=== PATIENT | male | born 1950 ===

== ENCOUNTER 2016-09-26 08:23 | Inpatient (IN) | payer MEDICARE ==
[2016-09-26 08:23] VITALS: BMI 31.0
[2016-09-26 09:09] LABS: BASO % 0.7 % (0.0-2.0); EOS # 0.5 K/uL (0.0-0.7); EOS % 6.9 % (0.0-4.0); LYMPH # 1.6 K/uL (1.0-4.3); MEAN CORPUSCULAR HEMOGLOBIN 29.6 pg (27.0-31.0); MEAN CORPUSCULAR HGB CONC 33.5 g/dL (33.0-37.0); MEAN PLATELET VOLUME 8.4 fL (7.2-11.7); MONO # 0.9 K/uL (0.0-0.8); MONO % 12.2 % (0.0-10.0); NEUT # 4.2 K/uL (1.8-7.0); NEUT % 58.2 % (50.0-75.0); RBC 4.12 Mil/uL (4.40-5.90); WHITE BLOOD COUNT 7.2 K/uL (4.8-10.8)
[2016-09-26 09:13] LABS: HEMOGLOBIN 12.2 g/dL (12.0-18.0); MEAN CELL VOLUME 88.5 fL (80.0-94.0)
[2016-09-26 09:18] LABS: INR 1.1; PROTHROMBIN TIME 11.8 SECONDS (9.7-12.2)
[2016-09-26 09:22] LABS: ALBUMIN 3.9 g/dL (3.5-5.0)
[2016-09-26 09:25] LABS: ALB/GLOB RATIO 1.1 (1.0-2.1); CALCIUM 8.9 mg/dl (8.6-10.4)
[2016-09-26] MEDS ORDERED: Dextrose 50% SYRINGE Inj (50 ml) IV STA (09:38)
[2016-09-26] MEDS ORDERED: Calcium Gluconate 4.65 mEq/10 ml Inj IVP STA (09:39)
[2016-09-26] MEDS ORDERED: (Novolin R) Insulin Human Regular 100 units/ml vial IV STA (09:39)
[2016-09-26] MEDS ORDERED: Sod Polystyrene Sulf 15 gm/60 ml Oral Susp PO STA (09:40)
[2016-09-26] MEDS ORDERED: Sodium Bicarbonate (8.4%) 50 Meq Syringe IVP STA (09:40)
[2016-09-26] MEDS ORDERED: Sod Polystyrene Sulf 15 gm/60 ml Oral Susp ONE (09:47)
[2016-09-26] MEDS ORDERED: Sodium Bicarbonate (8.4%) 50 Meq Syringe ONE (09:47)
[2016-09-26] MEDS ORDERED: Calcium Gluconate 4.65 mEq/10 ml Inj ONE (09:47)
[2016-09-26] MEDS ORDERED: Dextrose 50% SYRINGE Inj (50 ml) ONE (09:47)
--- NOTE | 2016-09-26 09:47 | C.PDOC ---
History Of Present Illness 66 y/o male sent to the ED by PMD for elevated potassium level. Patient states blood work was done 2 days ago, which showed elevated potassium level, was instructed to report to ED. Pt complains of generalized weakness, and feels "sluggish". Denies having similar symptoms in the past. Otherwise, denies any muscle cramps, chest pain, palpitations, shortness of breath, nausea, vomiting, headache, dizziness, or fever. Time Seen by Provider: 09/26/16 08:36 Chief Complaint (Nursing): Abnormal Labs History Per: Patient History/Exam Limitations: no limitations Onset/Duration Of Symptoms: Gradual Current Symptoms Are (Timing): Still Present Severity: None Pain Scale Rating Of: 0 Reports Recently: Treated By A Physician Recent travel outside of the [place]: No Additional History Per: Patient Past Medical History Reviewed: Historical Data, Nursing Documentation, Vital Signs Vital Signs: Last Vital Signs Temp 97.3 F L 09/26/16 13:52 Pulse 64 09/26/16 13:52 Resp 20 09/26/16 13:52 BP 104/65 09/26/16 13:52 Pulse Ox 99 09/26/16 13:52 - Medical History PMH: CHF, Diabetes, HTN, Chronic Kidney Disease, Sleep Apnea (NO CPAP USED) - [employer] Procedures ASSISTANCE WITH RESPIRATORY VENTILATION, <24 HRS, CPAP (10/11/15) FLUOROSCOPY OF MULT COR ART USING L OSM CONTRAST (10/11/15) FLUOROSCOPY OF RIGHT AND LEFT HEART USING L OSM CONTRAST (10/11/15) MEASURE CARDIAC SAMPL & PRESSURE, BILATERAL, PERC (10/11/15) Family History: States: Unknown Family Hx - Social History Hx Tobacco Use: No Hx Alcohol Use: Yes (OCCASIONAL ALCOHOL USE. DRANK A YR AGO) Hx Substance Use: No - Immunization History Hx Tetanus Toxoid Vaccination: No Hx Influenza Vaccination: No Hx Pneumococcal Vaccination: No Review Of Systems Except As Marked, All Systems Reviewed And Found Negative. Constitutional: Positive for: Weakness. Negative for: Fever, Chills Cardiovascular: Negative for: Chest Pain, Palpitations, Light Headedness Respiratory: Negative for: Cough, Shortness of Breath Gastrointestinal: Negative for: Nausea, Vomiting Musculoskeletal: Negative for: Neck Pain Skin: Negative for: Rash, Bruising Neurological: Negative for: Weakness, Numbness, Headache, Dizziness Physical Exam - Physical Exam Appears: Non-toxic, No Acute Distress Skin: Normal Color, Warm, Dry Head: Atraumatic, Normacephalic Eye(s): bilateral: Normal Inspection, EOMI Nose: Normal Oral Mucosa: Moist Neck: Normal ROM, Supple Lymphatic: Normal Exam Chest: Symmetrical Cardiovascular: Rhythm Regular, No Murmur Respiratory: Normal Breath Sounds, No Rales, No Rhonchi, No Wheezing Gastrointestinal/Abdominal: Soft, No Tenderness Extremity: Normal ROM Neurological/Psych: Oriented x3, Normal Speech ED Course And Treatment - Laboratory Results Result Diagrams: 09/26/16 09:02 09/26/16 11:31 ECG: Interpreted By Me, Viewed By Me ECG Rhythm: Sinus Bradycardia ECG Interpretation: Normal Interpretation Of ECG: no significant peaked T noted Rate From EC (bpm) O2 Sat by Pulse Oximetry: 97 (RA) Pulse Ox Interpretation: Normal Progress Note: Blood work, urinalysis, EKG ordered and reviewed. Patient was given Calcium gluconate, Dextrose, Insulin, Sodium Bicarbonate, Sodium Polystyrene sulfonate, and Albuterol treatment. Case discussed with Dr. Dunaway who agrees with plan, treatment, and admission. Spoke with Dr. Emili Marrero who agrees upon admission under her service. Disposition - Disposition Disposition: HOSPITALIZED Disposition Time: 13:30 Condition: STABLE - Clinical Impression Clinical Impression: Hyperkalemia, Renal insufficiency - PA / KETTLE OPERATOR / Resident Statement MD/DO has reviewed & agrees with the documentation as recorded. - Scribe Statement The provider has reviewed the documentation as recorded by the Scribe Samantha Schultz All medical record entries made by the Scribe were at my direction and personally dictated by me. I have reviewed the chart and agree that the record accurately reflects my personal performance of the history, physical exam, medical decision making, and the department course for this patient. I have also personally directed, reviewed, and agree with the discharge instructions and disposition.
[2016-09-26 09:56] LABS: URINE BACTERIA RARE (<OCC); URINE BILIRUBIN NEGATIVE (NEGATIVE); URINE BLOOD NEGATIVE (NEGATIVE); URINE CLARITY Clear (Clear); URINE COLOR Straw (YELLOW); URINE GLUCOSE (UA) NORMAL (Normal); URINE LEUKOCYTE ESTERASE NEG Leu/uL (Negative); URINE NITRATE NEGATIVE (NEGATIVE); URINE PROTEIN NEGATIVE (NEGATIVE); URINE UROBILINOGEN NORMAL mg/dL (0.2-1.0)
[2016-09-26] MEDS ORDERED: (Novolin R) Insulin Human Regular 100 units/ml vial ONE (09:56)
[2016-09-26] MEDS ORDERED: Albuterol 0.083% Inhal Sol (2.5 mg/3 mL) UD IH STA (10:50)
[2016-09-26] MEDS ORDERED: Albuterol-Ipratrop 3 mg / 0.5 (3 ml) UD ONE (11:06)
[2016-09-26 11:55] LABS: ALBUMIN 4.1 g/dL (3.5-5.0)
[2016-09-26 11:59] LABS: ALB/GLOB RATIO 1.1 (1.0-2.1); CALCIUM 9.6 mg/dl (8.6-10.4)
--- NOTE | 2016-09-26 14:34 | CP.PCM.CON ---
History of Present Illness - History of Present Illness History of Present Illness: [id number] man was referred by the PMDs office for elevated potassium level patient has been potassium of 7.4 eventually kidney consult was called the patient complaints of generalized weakness and feeling slow but no fever no chest pain no headache no muscle cramps no leg cramps no shortness of breath no nausea no vomiting was brought in status post potassium of 7.4 given Kayexalate and calcium added albuterol as well as sodium and glucose insulin glucose repeat the potassium went down to 6.1 discussed with the PMD no chest pain or shortness of breath patient otherwise feels better EKG revealed some minor changes Past Patient History - Infectious Disease Hx of Infectious Diseases: None - Tetanus Immunizations Tetanus Immunization: Unknown - Past Medical History & Family History Past Medical History?: Yes - Past Social History Smoking Status: Never Smoked - CARDIAC Hx Congestive Heart Failure: Yes Hx Hypertension: Yes - PULMONARY Hx Pulmonary Edema: Yes Hx Sleep Apnea: Yes (NO CPAP USED) - HEENT Hx Cataracts: Yes - RENAL Hx Chronic Kidney Disease: Yes - ENDOCRINE/METABOLIC Hx Endocrine Disorders: Yes Hx Diabetes Mellitus Type 2: Yes - HEMATOLOGICAL/ONCOLOGICAL Hx Blood Disorders: No - MUSCULOSKELETAL/RHEUMATOLOGICAL Hx Falls: No Hx Gout: Yes - GASTROINTESTINAL Hx Gastrointestinal Disorders: No - GENITOURINARY/GYNECOLOGICAL Hx Prostate Problems: Yes - PSYCHIATRIC Hx Substance Use: No - SURGICAL HISTORY Hx Surgeries: Yes (CYST REMOVED UNDERARM LEFT .) Other/Comment: hernia repair - ANESTHESIA Hx Anesthesia: Yes Hx Anesthesia Reactions: No Hx Malignant Hyperthermia: No Has any member of the family had a problem w/ anesthesia?: No Meds Allergies/Adverse Reactions: Allergies Allergy/AdvReac Type Severity Reaction Status Date / Time No Known Allergies Allergy Verified 09/26/16 08:30 Physical Exam - Constitutional Appears: Well - Head Exam Head Exam: ATRAUMATIC, NORMAL INSPECTION, NORMOCEPHALIC - Eye Exam Eye Exam: EOMI, Normal appearance, PERRL Pupil Exam: NORMAL ACCOMODATION, PERRL - ENT Exam ENT Exam: Mucous Membranes Moist, Normal Exam - Neck Exam Neck exam: Positive for: Normal Inspection - Respiratory Exam Respiratory Exam: Decreased Breath Sounds - Cardiovascular Exam Cardiovascular Exam: REGULAR RHYTHM, +S1, +S2 - GI/Abdominal Exam GI & Abdominal Exam: Diminished Bowel Sounds, Soft - Rectal Exam Rectal Exam: Deferred Results - Vital Signs Recent Vital Signs: Last Vital Signs Temp 97.3 F L 09/26/16 13:52 Pulse 64 09/26/16 13:52 Resp 20 09/26/16 13:52 BP 104/65 09/26/16 13:52 Pulse Ox 99 09/26/16 13:52 - Labs Result Diagrams: 09/26/16 09:02 09/26/16 11:31 Labs: Laboratory Results - last 24 hr 09/26/16 11:31 Sodium 144 Potassium 6.1 H Chloride 111 H Carbon Dioxide 16 L Anion Gap 23 H BUN 63 H Creatinine 2.7 H Est GFR ( Amer) 29 Est GFR (Non-Af Amer) 24 Random Glucose 77 Calcium 9.6 Total Bilirubin 0.7 AST 22 ALT 26 Alkaline Phosphatase 59 Total Protein 7.8 Albumin 4.1 Globulin 3.8 Albumin/Globulin Ratio 1.1 Assessment & Plan - Assessment and Plan (Free Text) Plan: Creatinine level Pastora level Status post albuterol Status post anemia was status post Kayexalate Status post glucose insulin glucose Status post albuterol Status post calcium EKG Check CBC CMP daily C3-C4 Hepatitis B surface antigen hepatitis B surface antibody Hepatitis C antibody Renal sonogram 24 hour urine for total protein Urine electrolytes Case seen and discussed with the PMD
--- NOTE | 2016-09-26 16:47 | US ---
PROCEDURE: Ultrasound of the Kidneys HISTORY: Chronic renal failure. COMPARISON: All along, 1 oral. Remain ribs:. TECHNIQUE: Sonogram of the kidneys. FINDINGS: RIGHT KIDNEY: Measures: 4.8 x 5.9 x 10.0 cm. Normal in size, contour and echogenicity. No stone, solid mass lesion or hydronephrosis visualized. Incidental finding(s): Multiple simple cysts (4) LEFT KIDNEY: Measures: 5 x 5.6 x 12.4 cm. Normal in size, contour and echogenicity. No stone, solid mass lesion or hydronephrosis visualized. Incidental finding(s): Simple cyst upper pole 2.2 x 2.8 cm. Midpole cyst 3.4 x 2.4 cm. Calcific rim within the cyst. OTHER FINDINGS: None. IMPRESSION: No significant or acute findings to account for/ related to the clinical presentation. Additional benign and/or incidental findings described above.
[2016-09-26] MEDS ORDERED: Albuterol 0.083% Inhal Sol (2.5 mg/3 mL) UD INH STA ×2 (23:14→23:15)
--- NOTE | 2016-09-26 23:21 | CP.PCM.HP ---
History of Present Illness - History of Present Illness History of Present Illness: History Of Present Illness 66 y/o male sent to the ED by PMD ( [facility]) for elevated potassium level. Patient states blood work was done 2 days ago, which showed elevated potassium level, was instructed to report to ED. Pt complains of generalized weakness, and feels "sluggish". Denies having similar symptoms in the past. Otherwise, denies any muscle cramps, chest pain, palpitations, shortness of breath, nausea , vomiting, headache, dizziness, or fever. Present on Admission - Present on Admission Any Indicators Present on Admission: No Review of Systems - Constitutional Constitutional: Fatigue, Lethargy - EENT Eyes: As Per HPI Ears: As Per HPI Nose/Mouth/Throat: As Per HPI - Cardiovascular Cardiovascular: As Per HPI - Respiratory Respiratory: As Per HPI - Gastrointestinal Gastrointestinal: As Per HPI - Genitourinary Genitourinary: As Per HPI - Integumentary Integumentary: As Per HPI - Neurological Neurological: As Per HPI - Psychiatric Psychiatric: As Per HPI - Endocrine Endocrine: As Per HPI - Hematologic/Lymphatic Hematologic: As Per HPI Past Patient History - Infectious Disease Hx of Infectious Diseases: None - Tetanus Immunizations Tetanus Immunization: Unknown - Past Medical History & Family History Past Medical History?: Yes - Past Social History Smoking Status: Never Smoked - CARDIAC Hx Congestive Heart Failure: Yes Hx Hypertension: Yes - PULMONARY Hx Pulmonary Edema: Yes Hx Sleep Apnea: Yes (NO CPAP USED) - HEENT Hx Cataracts: Yes - RENAL Hx Chronic Kidney Disease: Yes - ENDOCRINE/METABOLIC Hx Endocrine Disorders: Yes Hx Diabetes Mellitus Type 2: Yes - HEMATOLOGICAL/ONCOLOGICAL Hx Blood Disorders: No - MUSCULOSKELETAL/RHEUMATOLOGICAL Hx Falls: No Hx Gout: Yes - GASTROINTESTINAL Hx Gastrointestinal Disorders: No - GENITOURINARY/GYNECOLOGICAL Hx Prostate Problems: Yes - PSYCHIATRIC Hx Substance Use: No - SURGICAL HISTORY Hx Surgeries: Yes (CYST REMOVED UNDERARM LEFT .) Other/Comment: hernia repair - ANESTHESIA Hx Anesthesia: Yes Hx Anesthesia Reactions: No Hx Malignant Hyperthermia: No Has any member of the family had a problem w/ anesthesia?: No Meds Allergies/Adverse Reactions: Allergies Allergy/AdvReac Type Severity Reaction Status Date / Time No Known Allergies Allergy Verified 09/26/16 08:30 Physical Exam - Constitutional Appears: Well - Head Exam Head Exam: ATRAUMATIC, NORMAL INSPECTION, NORMOCEPHALIC - Eye Exam Eye Exam: EOMI, Normal appearance, PERRL Pupil Exam: NORMAL ACCOMODATION, PERRL - ENT Exam ENT Exam: Mucous Membranes Moist, Normal Exam - Neck Exam Neck exam: Positive for: Normal Inspection - Respiratory Exam Respiratory Exam: Clear to Auscultation Bilateral, NORMAL BREATHING PATTERN - Cardiovascular Exam Cardiovascular Exam: REGULAR RHYTHM - GI/Abdominal Exam GI & Abdominal Exam: Normal Bowel Sounds, Soft. absent: Tenderness - Rectal Exam Rectal Exam: NORMAL INSPECTION - Exam Exam: Circumcision, NORMAL INSPECTION External exam: NORMAL EXTERNAL EXAM Speculum exam: NORMAL SPECULUM EXAM Bimanual exam: NORMAL BIMANUAL EXAM - Extremities Exam Extremities exam: Positive for: normal inspection - Back Exam Back exam: NORMAL INSPECTION - Neurological Exam Neurological exam: Alert, CN II-XII Intact, Normal Gait, Oriented x3, Reflexes Normal - Psychiatric Exam Psychiatric exam: Normal Affect, Normal Mood - Skin Skin Exam: Dry, Intact, Normal Color, Warm Results - Vital Signs Recent Vital Signs: Last Vital Signs Temp 97.5 F L 09/26/16 15:48 Pulse 60 09/26/16 15:48 Resp 20 09/26/16 15:48 BP 102/70 09/26/16 16:00 Pulse Ox 100 09/26/16 15:48 - Labs Result Diagrams: 09/26/16 09:02 09/26/16 11:31 Labs: Laboratory Results - last 24 hr 09/26/16 09/26/16 09/26/16 11:31 21:55 21:55 Sodium 144 Potassium 6.1 H Chloride 111 H Carbon Dioxide 16 L Anion Gap 23 H BUN 63 H Creatinine 2.7 H Est GFR ( Amer) 29 Est GFR (Non-Af Amer) 24 Random Glucose 77 Calcium 9.6 Total Bilirubin 0.7 AST 22 ALT 26 Alkaline Phosphatase 59 Total Protein 7.8 Albumin 4.1 Globulin 3.8 Albumin/Globulin Ratio 1.1 Ur Random Sodium 74 Ur Random Potassium 31.8 Assessment & Plan (1) Hyperkalemia Status: Acute (2) Renal insufficiency Status: Acute (3) Abdominal pain Status: Acute (4) Diabetes Status: Acute (5) Heart failure Status: Acute Priority: High (6) Hyperglycemia Status: Acute (7) Hypertension Status: Acute (8) ZEFERINO (obstructive sleep apnea) Status: Acute (9) Pneumonia Status: Acute (10) Prophylactic measure Status: Acute (11) Pulmonary edema Status: Acute (12) Respiratory distress, acute Status: Acute Priority: High - Assessment and Plan (Free Text) Assessment: 66-year-old man was referred by the PMDs office for elevated potassium level patient has been potassium of 7.4 eventually kidney consult was called BY DR monserrat larose ,the patient complaints of generalized weakness and feeling slow but no fever no chest pain no headache no muscle cramps no leg cramps no shortness of breath no nausea no vomiting was brought in status post potassium of 7.4 given Kayexalate and calcium added albuterol as well as sodium and glucose insulin glucose repeat the potassium went down to 6.[address] larose no chest pain or shortness of breath patient otherwise feels better EKG revealed some minor changes Plan: Plan: Creatinine level Status post albuterol,status post Kayexalate Status post glucose insulin Status post calcium EKG Check CBC CMP daily C3-C4 Hepatitis B surface antigen hepatitis B surface antibody Hepatitis C antibody Renal sonogram 24 hour urine for total protein Urine electrolytes Case seen and discussed with the dr Monserrat larose
[2016-09-26] MEDS ORDERED: Dextrose 50% SYRINGE Inj (50 ml) IV ONE (23:30)
[2016-09-26] MEDS ORDERED: (Novolin R) Insulin Human Regular 100 units/ml vial IV ONE (23:30)
[2016-09-27] MEDS: Albuterol 0.083% Inhal Sol (2.5 mg/3 mL) UD INH STA ×2 (00:26→00:27)
[2016-09-27 03:19] LABS: CALCIUM 8.7 mg/dl (8.6-10.4)
[2016-09-27 08:02] LABS: HEMOGLOBIN 11.8 g/dL (12.0-18.0); MEAN CELL VOLUME 87.8 fL (80.0-94.0); MEAN CORPUSCULAR HEMOGLOBIN 29.5 pg (27.0-31.0); MEAN CORPUSCULAR HGB CONC 33.6 g/dL (33.0-37.0); MEAN PLATELET VOLUME 8.6 fL (7.2-11.7); RED CELL DISTRIBUTION WIDTH 13.7 % (11.5-14.5); WHITE BLOOD COUNT 6.9 K/uL (4.8-10.8)
[2016-09-27 08:40] LABS: ALBUMIN 3.8 g/dL (3.5-5.0)
[2016-09-27 08:43] LABS: ALB/GLOB RATIO 1.1 (1.0-2.1)
[2016-09-27 08:44] LABS: CALCIUM 8.9 mg/dl (8.6-10.4)
[2016-09-27 08:49] LABS: COMPLEMENT C4 26.7 mg/dL (14.0-44.0)
[2016-09-27 08:56] LABS: HEPATITIS C ANTIBODY NEGATIVE (NEGATIVE)
[2016-09-27 09:25] LABS: HEPATITIS B SURFACE AG NEGATIVE (NEGATIVE)
[2016-09-27] MEDS ORDERED: GlipiZIDE 2.5 mg Tab PO SCH (10:00)
--- NOTE | 2016-09-27 12:53 | CARD ---
APPROVED REPORT EKG Measurement Heart [id number] <Conclusion> Sinus bradycardia Otherwise normal ECG
[2016-09-27 16:05] VITALS: RESP 20
--- NOTE | 2016-09-27 16:42 | CP.PCM.HP ---
Past Patient History - Infectious Disease Hx of Infectious Diseases: None - Tetanus Immunizations Tetanus Immunization: Unknown - Past Medical History & Family History Past Medical History?: Yes - Past Social History Smoking Status: Never Smoked - CARDIAC Hx Cardiac Disorders: Yes (CHF) Hx Hypertension: Yes - PULMONARY Hx Pulmonary Edema: Yes Hx Sleep Apnea: Yes (NO CPAP USED) - HEENT Hx Cataracts: Yes - RENAL Hx Chronic Kidney Disease: Yes - ENDOCRINE/METABOLIC Hx Diabetes Mellitus Type 2: Yes - HEMATOLOGICAL/ONCOLOGICAL Hx Blood Disorders: No - MUSCULOSKELETAL/RHEUMATOLOGICAL Hx Falls: No Hx Gout: Yes - GASTROINTESTINAL Hx Gastrointestinal Disorders: No - GENITOURINARY/GYNECOLOGICAL Hx Prostate Problems: Yes - PSYCHIATRIC Hx Substance Use: No - SURGICAL HISTORY Hx Surgeries: Yes (CYST REMOVED UNDERARM LEFT .) Other/Comment: hernia repair - ANESTHESIA Hx Anesthesia: Yes Hx Anesthesia Reactions: No Hx Malignant Hyperthermia: No Has any member of the family had a problem w/ anesthesia?: No Meds Allergies/Adverse Reactions: Allergies Allergy/AdvReac Type Severity Reaction Status Date / Time No Known Allergies Allergy Verified 09/26/16 08:30 Physical Exam - Constitutional Appears: Well - Head Exam Head Exam: ATRAUMATIC, NORMAL INSPECTION, NORMOCEPHALIC - Eye Exam Eye Exam: EOMI, Normal appearance, PERRL Pupil Exam: NORMAL ACCOMODATION, PERRL - ENT Exam ENT Exam: Mucous Membranes Moist, Normal Exam - Neck Exam Neck exam: Positive for: Normal Inspection - Respiratory Exam Respiratory Exam: Decreased Breath Sounds - Cardiovascular Exam Cardiovascular Exam: REGULAR RHYTHM, +S1, +S2 - GI/Abdominal Exam GI & Abdominal Exam: Diminished Bowel Sounds, Soft - Rectal Exam Rectal Exam: Deferred Results - Vital Signs Recent Vital Signs: Last Vital Signs Temp 97.8 F 09/27/16 16:02 Pulse 77 09/27/16 16:02 Resp 20 09/27/16 16:02 BP 94/64 L 09/27/16 16:02 Pulse Ox 98 09/27/16 16:02 - Labs Result Diagrams: 09/27/16 07:48 09/27/16 07:48 Labs: Laboratory Results - last 24 hr 09/26/16 09/26/16 09/27/16 21:55 21:55 03:01 WBC RBC Hgb Hct MCV MCH MCHC RDW Plt Count MPV Sodium 141 Potassium 4.6 Chloride 109 H Carbon Dioxide 16 L Anion Gap 21 H BUN 61 H Creatinine 2.8 H Est GFR ( Amer) 27 Est GFR (Non-Af Amer) 23 Random Glucose 130 H Calcium 8.7 Total Bilirubin AST ALT Alkaline Phosphatase Total Protein Albumin Globulin Albumin/Globulin Ratio Ur Random Sodium 74 Ur Random Potassium 31.8 Complement C3 Complement C4 Hep Bs Antigen Hep Bs Antibody Hepatitis C Antibody 09/27/16 09/27/16 09/27/16 07:48 07:48 07:48 WBC 6.9 RBC 4.00 L Hgb 11.8 L Hct 35.2 MCV 87.8 MCH 29.5 MCHC 33.6 RDW 13.7 Plt Count 179 MPV 8.6 Sodium 143 Potassium 5.5 H Chloride 108 H Carbon Dioxide 18 L Anion Gap 22 H BUN 58 H Creatinine 2.7 H Est GFR ( Amer) 29 Est GFR (Non-Af Amer) 24 Random Glucose 100 Calcium 8.9 Total Bilirubin 0.6 AST 16 L D ALT 23 Alkaline Phosphatase 51 Total Protein 7.3 Albumin 3.8 Globulin 3.5 Albumin/Globulin Ratio 1.1 Ur Random Sodium Ur Random Potassium Complement C3 Complement C4 Hep Bs Antigen Negative Hep Bs Antibody Hepatitis C Antibody Negative 09/27/16 09/27/16 07:48 07:48 WBC RBC Hgb Hct MCV MCH MCHC RDW Plt Count MPV Sodium Potassium Chloride Carbon Dioxide Anion Gap BUN Creatinine Est GFR ( Amer) Est GFR (Non-Af Amer) Random Glucose Calcium Total Bilirubin AST ALT Alkaline Phosphatase Total Protein Albumin Globulin Albumin/Globulin Ratio Ur Random Sodium Ur Random Potassium Complement C3 102.0 Complement C4 26.7 Hep Bs Antigen Hep Bs Antibody Negative Hepatitis C Antibody
[2016-09-27] MEDS ORDERED: Sod Polystyrene Sulf 15 gm/60 ml Oral Susp PO ONE (18:56)
[2016-09-28 01:51] VITALS: O2SAT 97
--- NOTE | 2016-09-28 03:22 | PN ---
SUBJECTIVE: The patient is a 66 years old male. The patient is seen and examined on the bedside, looking comfortable. No nausea, vomiting or diarrhea. No hematuria or hematochezia. No swelling of the leg. No chest pain. No palpitations. No headache. No dizziness. PHYSICAL EXAMINATION: VITAL SIGNS: Temperature 97.8, pulse 77, blood pressure 94/64, and respiratory rate is 20. HEENT: Head is normocephalic and atraumatic. Eyes; PERRLA. Extraocular muscles intact. Conjunctivae clear. Nose patent. NECK: Supple. No carotid bruits, JVD, or thyromegaly. CHEST: Bilateral symmetrical. HEART: S1 and S2 positive. LUNGS: Clear to auscultation. ABDOMEN: Soft. Bowel sounds present. No organomegaly. EXTREMITIES: No edema. No cyanosis. NEUROLOGIC: The patient is awake and alert. Moving all four extremities. No focal deficits. MEDICATIONS: Amaryl, Heparin and Lasix. LABORATORY DATA: White blood cell 6.9, hemoglobin 11.8, hematocrit 35.2 and platelets 179. Sodium 142, potassium 5.5 on admission it was 7.4, BUN 58, on admission it was 61 and creatinine 2.7. ASSESSMENT AND PLAN: Mr. Glynn Riggins is a 66 years old male with anemia, hyperkalemia improving, hyperchloremia, renal insufficiency improving, videotape editor is on the case, hepatitis are negative, seen by Dr. Brinda Schultz, history of fatigue and tiredness, palpitation, uncontrolled diabetes mellitus. The patient had a followup with [facility]. The patient had stress test done in 2014 , had h/o congestive heart failure, sleep apnea, h/o cardiomyopathy, had h/o LifeVest but according to the patient, he went to see [place] public works supervisor. The patient was using Coumadin, but according to the patient [place] doctor stopped his blood thinner, we will work on that. GI/DVT prophylaxis. We will continue monitoring the patient's potassium. We will follow up. Emili Marrero MD DAVID
[2016-09-28 07:26] LABS: HEMOGLOBIN 11.8 g/dL (12.0-18.0); MEAN CELL VOLUME 87.3 fL (80.0-94.0); MEAN CORPUSCULAR HEMOGLOBIN 29.2 pg (27.0-31.0); MEAN CORPUSCULAR HGB CONC 33.4 g/dL (33.0-37.0); MEAN PLATELET VOLUME 8.5 fL (7.2-11.7); RBC 4.04 Mil/uL (4.40-5.90); RED CELL DISTRIBUTION WIDTH 13.9 % (11.5-14.5); WHITE BLOOD COUNT 6.2 K/uL (4.8-10.8)
[2016-09-28 07:36] LABS: CALCIUM 8.6 mg/dl (8.6-10.4)
[2016-09-28 07:38] LABS: IRON 80 ug/dL (49-181)
[2016-09-28 07:53] LABS: % IRON SATURATION 30 (20-55); TOTAL IRON BINDING CAPACITY 265 ug/dL (250-450)
[2016-09-28 08:36] VITALS: BP 98/66; PULSE 65; TEMP 97.6
[2016-09-28 08:48] LABS: FOLATE 6.6 ng/mL
--- NOTE | 2016-09-28 11:39 | CP.PCM.CON ---
Past Patient History - Infectious Disease Hx of Infectious Diseases: None - Tetanus Immunizations Tetanus Immunization: Unknown - Past Medical History & Family History Past Medical History?: Yes - Past Social History Smoking Status: Never Smoked - CARDIAC Hx Cardiac Disorders: Yes (CHF) Hx Hypertension: Yes - PULMONARY Hx Pulmonary Edema: Yes Hx Sleep Apnea: Yes (NO CPAP USED) - HEENT Hx Cataracts: Yes - RENAL Hx Chronic Kidney Disease: Yes - ENDOCRINE/METABOLIC Hx Diabetes Mellitus Type 2: Yes - HEMATOLOGICAL/ONCOLOGICAL Hx Blood Disorders: No - MUSCULOSKELETAL/RHEUMATOLOGICAL Hx Falls: No Hx Gout: Yes - GASTROINTESTINAL Hx Gastrointestinal Disorders: No - GENITOURINARY/GYNECOLOGICAL Hx Prostate Problems: Yes - PSYCHIATRIC Hx Substance Use: No - SURGICAL HISTORY Hx Surgeries: Yes (CYST REMOVED UNDERARM LEFT .) Other/Comment: hernia repair - ANESTHESIA Hx Anesthesia: Yes Hx Anesthesia Reactions: No Hx Malignant Hyperthermia: No Has any member of the family had a problem w/ anesthesia?: No Meds Allergies/Adverse Reactions: Allergies Allergy/AdvReac Type Severity Reaction Status Date / Time No Known Allergies Allergy Verified 09/26/16 08:30 - Medications Medications: Current Medications Aspirin (Ecotrin) 81 mg PO DAILY [facility] Last Admin: 09/28/16 09:50 Dose: 81 mg Furosemide (Lasix) 40 mg PO DAILY [facility] Last Admin: 09/28/16 09:50 Dose: 40 mg Glimepiride (Amaryl) 4 mg PO DAILY [facility] Last Admin: 09/28/16 09:49 Dose: 4 mg Heparin Sodium (Porcine) (Heparin) 5,000 units SC Q12 [facility] Last Admin: 09/28/16 09:51 Dose: 5,000 units Results - Vital Signs Recent Vital Signs: Last Vital Signs Temp 97.6 F 09/28/16 07:00 Pulse 65 09/28/16 10:00 Resp 20 09/28/16 07:00 BP 98/66 L 09/28/16 09:50 Pulse Ox 97 09/28/16 07:00 - Labs Result Diagrams: 09/28/16 07:16 09/28/16 07:16 Labs: Laboratory Results - last 24 hr 09/26/16 09/27/16 09/28/16 21:55 19:28 07:16 WBC 6.2 RBC 4.04 L Hgb 11.8 L Hct 35.2 MCV 87.3 MCH 29.2 MCHC 33.4 RDW 13.9 Plt Count 173 MPV 8.5 Sodium Potassium Chloride Carbon Dioxide Anion Gap BUN Creatinine Est GFR ( Amer) Est GFR (Non-Af Amer) Random Glucose Calcium Iron TIBC % Saturation NT-Pro-B Natriuret Pep Triglycerides Cholesterol LDL Cholesterol Direct HDL Cholesterol Vitamin B12 Folate TSH 3rd Generation Urine Collection Time 24 Urine Total Volume 900 Urine Chloride 94 Ur Protein 24 Hr Calc 108.0 09/28/16 09/28/16 07:16 07:16 WBC RBC Hgb Hct MCV MCH MCHC RDW Plt Count MPV Sodium 141 Potassium 5.0 Chloride 106 Carbon Dioxide 17 L Anion Gap 23 H BUN 59 H Creatinine 2.5 H Est GFR ( Amer) 31 Est GFR (Non-Af Amer) 26 Random Glucose 122 H Calcium 8.6 Iron 80 TIBC 265 % Saturation 30 NT-Pro-B Natriuret Pep 116 Triglycerides 228 H D Cholesterol 129 LDL Cholesterol Direct 58 HDL Cholesterol 27 L Vitamin B12 280 Folate 6.6 TSH 3rd Generation 1.24 Urine Collection Time Urine Total Volume Urine Chloride Ur Protein 24 Hr Calc
--- NOTE | 2016-09-28 16:15 | CP.PCM.DIS ---
Provider - Provider Date of Admission: 09/26/16 10:41 Attending physician: Emili Marrero MD Time Spent in preparation of Discharge (in minutes): 50 Diagnosis - Discharge Diagnosis (1) Hyperkalemia Status: Acute (2) Renal insufficiency Status: Acute (3) Abdominal pain Status: Acute (4) Diabetes Status: Acute (5) Heart failure Status: Acute Priority: High (6) Hyperglycemia Status: Acute (7) Hypertension Status: Acute (8) ZEFERINO (obstructive sleep apnea) Status: Acute (9) Pneumonia Status: Acute (10) Prophylactic measure Status: Acute (11) Pulmonary edema Status: Acute (12) Respiratory distress, acute Status: Acute Priority: High Hospital Course - Lab Results Lab Results: Most Recent Lab Values WBC 6.2 K/uL (4.8-10.8) 09/28/16 07:16 RBC 4.04 Mil/uL (4.40-5.90) L 09/28/16 07:16 Hgb 11.8 g/dL (12.0-18.0) L 09/28/16 07:16 Hct 35.2 % (35.0-51.0) 09/28/16 07:16 MCV 87.3 fL (80.0-94.0) 09/28/16 07:16 MCH 29.2 pg (27.0-31.0) 09/28/16 07:16 MCHC 33.4 g/dL (33.0-37.0) 09/28/16 07:16 RDW 13.9 % (11.5-14.5) 09/28/16 07:16 Plt Count 173 K/uL (130-400) 09/28/16 07:16 MPV 8.5 fL (7.2-11.7) 09/28/16 07:16 Neut % (Auto) 58.2 % (50.0-75.0) 09/26/16 09:02 Lymph % (Auto) 22.0 % (20.0-40.0) 09/26/16 09:02 Coal % (Auto) 12.2 % (0.0-10.0) H 09/26/16 09:02 Eos % (Auto) 6.9 % (0.0-4.0) H 09/26/16 09:02 Baso % (Auto) 0.7 % (0.0-2.0) 09/26/16 09:02 Neut # 4.2 K/uL (1.8-7.0) 09/26/16 09:02 Lymph # 1.6 K/uL (1.0-4.3) 09/26/16 09:02 Coal # 0.9 K/uL (0.0-0.8) H 09/26/16 09:02 Eos # 0.5 K/uL (0.0-0.7) 09/26/16 09:02 Baso # 0.0 K/uL (0.0-0.2) 09/26/16 09:02 PT 11.8 SECONDS (9.7-12.2) 09/26/16 09:02 INR 1.1 09/26/16 09:02 APTT 29 SECONDS (21-34) 09/26/16 09:02 Sodium 141 mmol/L (132-148) 09/28/16 07:16 Potassium 5.0 mmol/L (3.6-5.2) 09/28/16 07:16 Chloride 106 mmol/L (98-107) 09/28/16 07:16 Carbon Dioxide 17 mmol/L (22-30) L 09/28/16 07:16 Anion Gap 23 (10-20) H 09/28/16 07:16 BUN 59 mg/dL (9-20) H 09/28/16 07:16 Creatinine 2.5 MG/DL (0.8-1.5) H 09/28/16 07:16 Est GFR ( Amer) 31 09/28/16 07:16 Est GFR (Non-Af Amer) 26 09/28/16 07:16 Random Glucose 122 mg/dL (75-110) H 09/28/16 07:16 Calcium 8.6 mg/dl (8.6-10.4) 09/28/16 07:16 Iron 80 ug/dL (49-181) 09/28/16 07:16 TIBC 265 ug/dL (250-450) 09/28/16 07:16 % Saturation 30 (20-55) 09/28/16 07:16 Total Bilirubin 0.6 mg/dL (0.2-1.3) 09/27/16 07:48 AST 16 U/L (17-59) L D 09/27/16 07:48 ALT 23 U/L (21-72) 09/27/16 07:48 Alkaline Phosphatase 51 U/L (38-126) 09/27/16 07:48 NT-Pro-B Natriuret Pep 116 pg/mL (0-900) 09/28/16 07:16 Total Protein 7.3 g/dL (6.3-8.3) 09/27/16 07:48 Albumin 3.8 g/dL (3.5-5.0) 09/27/16 07:48 Globulin 3.5 gm/dL (2.2-3.9) 09/27/16 07:48 Albumin/Globulin Ratio 1.1 (1.0-2.1) 09/27/16 07:48 Triglycerides 228 mg/dL (0-149) H D 09/28/16 07:16 Cholesterol 129 mg/dL (0-199) 09/28/16 07:16 LDL Cholesterol Direct 58 mg/dL (0-129) 09/28/16 07:16 HDL Cholesterol 27 mg/dL (30-70) L 09/28/16 07:16 Vitamin B12 280 pg/mL (239-931) 09/28/16 07:16 Folate 6.6 ng/mL 09/28/16 07:16 TSH 3rd Generation 1.24 mIU/L (0.46-4.68) 09/28/16 07:16 Urine Color Straw (YELLOW) 09/26/16 09:41 Urine Clarity Clear (Clear) 09/26/16 09:41 Urine pH 5.0 (5.0-8.0) 09/26/16 09:41 Ur Specific [place] 1.009 (1.003-1.030) 09/26/16 09:41 Urine Protein Negative mg/dL (NEGATIVE) 09/26/16 09:41 Urine Glucose (UA) Normal mg/dL (Normal) 09/26/16 09:41 Urine Ketones Negative mg/dL (NEGATIVE) 09/26/16 09:41 Urine Blood Negative (NEGATIVE) 09/26/16 09:41 Urine Nitrate Negative (NEGATIVE) 09/26/16 09:41 Urine Bilirubin Negative (NEGATIVE) 09/26/16 09:41 Urine Urobilinogen Normal mg/dL (0.2-1.0) 09/26/16 09:41 Ur Leukocyte Esterase Neg Kristal/uL (Negative) 09/26/16 09:41 Urine WBC (Auto) 1 /hpf (0-5) 09/26/16 09:41 Urine Bacteria Rare (<OCC) 09/26/16 09:41 Ur Random Sodium 74 mmol/L 09/26/16 21:55 Ur Random Potassium 31.8 mmol/L 09/26/16 21:55 Urine Collection Time 24 HRS 09/27/16 19:28 Urine Total Volume 900 mL 09/27/16 19:28 Urine Chloride 94 mmol/L (32-290) 09/26/16 21:55 Ur Protein 24 Hr Calc 108.0 mg/24hr (42-225) 09/27/16 19:28 Complement C3 102.0 mg/dL (88.0-165.0) 09/27/16 07:48 Complement C4 26.7 mg/dL (14.0-44.0) 09/27/16 07:48 Hep Bs Antigen Negative (NEGATIVE) 09/27/16 07:48 Hep Bs Antibody Negative (NEGATIVE) 09/27/16 07:48 Hepatitis C Antibody Negative (NEGATIVE) 09/27/16 07:48 - Hospital Course Hospital Course: History Of Present Illness 66-year-old man was referred by the PMDs office for elevated potassium level patient has been potassium of 7.4 eventually kidney consult was called the patient complaints of generalized weakness and feeling slow but no fever no chest pain no headache no muscle cramps no leg cramps no shortness of breath no nausea no vomiting was brought in status post potassium of 7.4 given Kayexalate and calcium added albuterol as well as sodium and glucose insulin glucose repeat the potassium went down to 6.1 discussed with the business job titles, no chest pain or shortness of breath patient otherwise feels better EKG revealed some minor changes Patient states blood work was done 2 days ago, pt was seen by rn case management , business job titles meds readjustment done and dc home with f/u Discharge Exam - Head Exam Head Exam: ATRAUMATIC, NORMAL INSPECTION, NORMOCEPHALIC - Eye Exam Eye Exam: EOMI, Normal appearance, PERRL Pupil Exam: NORMAL ACCOMODATION, PERRL - ENT Exam ENT Exam: Normal Oropharynx - Neck Exam Neck exam: Full Rom - Respiratory Exam Respiratory Exam: Clear to PA & Lateral, NORMAL BREATHING PATTERN - Cardiovascular Exam Cardiovascular Exam: REGULAR RHYTHM - GI/Abdominal Exam GI & Abdominal Exam: Normal Bowel Sounds - Rectal Exam Rectal Exam: NORMAL INSPECTION - Exam Exam: Circumcision, NORMAL INSPECTION External exam: NORMAL EXTERNAL EXAM Speculum exam: NORMAL SPECULUM EXAM Bimanual exam: NORMAL BIMANUAL EXAM - Neurological Exam Neurological exam: Alert, CN II-XII Intact, Normal Gait, Oriented x3, Reflexes Normal - Psychiatric Exam Psychiatric exam: Normal Affect, Normal Mood - Skin Skin Exam: Dry, Intact, Normal Color, Warm Discharge Plan - Discharge Medications Prescriptions: Losartan [Cozaar] 12.5 mg PO DAILY #30 tab Metoprolol Succinate XL [Toprol XL] 12.5 mg PO BRK #30 tab - Follow Up Plan Condition: STABLE Disposition: HOME/ ROUTINE Instructions: Metoprolol (By mouth), Losartan (By mouth), Renal Failure Diet ( DC), Hyperkalemia (DC), Hyperkalemia (GEN) Additional Instructions: Please follow up with Dr. Marrero on Friday. f/u with Dr. Garza office on friday RX e prescribed to [facility]
== END 2016-09-28 12:22 | disposition home or self-care (01) | DRG 640 ==
LOC: C.ER 08:23 → C.9E 10:41 → C.6T 12:17
PROVIDERS: ADMIT Internal Medicine; ATTEND Internal Medicine
DX: E87.5 Hyperkalemia (principal); J18.9 Pneumonia, unspecified organism; I13.0 Hypertensive heart and chronic kidney disease with heart failure and stage 1 through stage 4 chronic kidney disease, or unspecified chronic kidney disease; I42.9 Cardiomyopathy, unspecified; E11.22 Type 2 diabetes mellitus with diabetic chronic kidney disease; I50.9 Heart failure, unspecified; E87.8 Other disorders of electrolyte and fluid balance, not elsewhere classified; E11.65 Type 2 diabetes mellitus with hyperglycemia; G47.33 Obstructive sleep apnea (adult) (pediatric); M10.9 Gout, unspecified; N18.9 Chronic kidney disease, unspecified; N28.9 Disorder of kidney and ureter, unspecified; D64.9 Anemia, unspecified; R06.00 Dyspnea, unspecified